=== PATIENT | female | born 1975 | race Caucasian/White ===

== ENCOUNTER → 2017-02-26 | Outpatient (CLI) | payer BC | LOC: MW.CHFP 14:12 | PROVIDERS: ATTEND Emergency Medicine | DX: M19.90 Unspecified osteoarthritis, unspecified site (principal) | CPT/HCPCS: 36415; 85025 ==

== ENCOUNTER → 2017-02-28 | Outpatient (CLI) | payer BC | END | disposition home or self-care (01) | LOC: MW.LAB 08:03 | PROVIDERS: ATTEND Plastic Surgery | DX: R53.83 Other fatigue (principal); N95.1 Menopausal and female climacteric states | CPT/HCPCS: 36415; 80061; 82306; 82670; 82947; 84403 ==

== ENCOUNTER 2017-08-20 05:32 | Day surgery (SDC) | payer BC ==
[2017-08-20] MEDS ORDERED: Ketorolac 30 MG/ML SDV IVPUSH ONE (05:47)
[2017-08-20] MEDS ORDERED: Sodium Chloride 0.9% 1,000 ML IV ONE (05:47)
[2017-08-20] MEDS ORDERED: Ondansetron 4 MG/2 ML SDV IVPUSH ONE (05:47)
--- NOTE | 2017-08-20 05:49 | EDM.PDOC ---
<Amish Vallecillo - Last Filed: 08/20/17 06:03> ED HPI GENERAL MEDICAL PROBLEM - General Chief Complaint: Gastrointestinal Problem Stated Complaint: ABDOMINAL PAIN Time Seen by Provider: 08/20/17 05:48 Source of Information: Reports: Patient - History of Present Illness INITIAL COMMENTS - FREE TEXT/NARRATIVE: HISTORY AND PHYSICAL: History of present illness: [Patient presents with right lower quadrant pain to begin with mild pain last night with dinner, she is been on the constipated side over the last couple of days she attributed symptoms to constipation however at 2 AM she is awoken by pain 8 out of 10 nonradiating right lower quadrant nothing has improved pain she continues to feel quite nauseous no vomiting denies fever chills sweats Patient has history of hysterectomy ] Review of systems: As per history of present illness and below otherwise all systems reviewed and negative. Past medical history: As per history of present illness and as reviewed below otherwise noncontributory. Surgical history: As per history of present illness and as reviewed below otherwise noncontributory. Social history: No reported history of drug or alcohol abuse. Family history: As per history of present illness and as reviewed below otherwise noncontributory. Physical exam: HEENT: Atraumatic, normocephalic, pupils reactive, negative for conjunctival pallor or scleral icterus, mucous membranes moist, throat clear, neck supple, nontender, trachea midline. Lungs: Clear to auscultation, breath sounds equal bilaterally, chest nontender. Heart: S1S2, regular, negative for clicks, rubs, or JVD. Abdomen: Soft, nondistended, exquisitely tender in the right lower quadrant with guarding and rebound. Negative for masses or hepatosplenomegaly. Negative for costovertebral tenderness. Pelvis: Stable nontender. Genitourinary: Deferred. Rectal: Deferred. Extremities: Atraumatic, negative for cords or calf pain. Neurovascular unremarkable. Neuro: Awake, alert, oriented. Cranial nerves II through XII unremarkable. Cerebellum unremarkable. Motor and sensory unremarkable throughout. Exam nonfocal. Diagnostics: [Lab as below CT abdomen pelvis with contrast No hCG secondary to hysterectomy ] Therapeutics: [1 L normal saline bolus Zofran 8 mg IV Toradol 30 mg IV Morphine 2 mg IV ] Impression: [Abdominal pain] Definitive disposition and diagnosis as appropriate pending reevaluation and review of above. 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 History: Reports: None Neurological History: Reports: None Psychiatric History: Reports: Anxiety Endocrine/Metabolic History: Reports: Hypothyroidism Hematologic History: Reports: None Immunologic History: Reports: SLE Dermatologic History: Reports: None - Infectious Disease History Infectious Disease History: Reports: None - Past Surgical History HEENT Surgical History: Reports: None GI Surgical History: Reports: Cholecystectomy, Other (See Below) Other GI Surgeries/Procedures: tummy tack Female Surgical History: Reports: Hysterectomy Musculoskeletal Surgical History: Reports: None Oncologic Surgical History: Reports: Lumpectomy Social & Family History - Family History Family Medical History: Noncontributory - Tobacco Use Smoking Status *Q: Never Smoker Second Hand Smoke Exposure: No - Caffeine Use Caffeine Use: Reports: None - Alcohol Use Days Per Week of Alcohol Use: 1 Number of Drinks Per Day: 2 Total Drinks Per Week: 2 - Recreational Drug Use Recreational Drug Use: No Course - Vital Signs Last Recorded V/S: Last Vital Signs Temp 36.6 C 08/20/17 05:33 Pulse 79 08/20/17 06:40 Resp 18 08/20/17 06:40 BP 110/67 08/20/17 06:40 Pulse Ox 98 08/20/17 06:40 - Orders/Labs/Meds Orders: Active Orders 24 hr Category Date Time Status Abdomen Pelvis w Cont [CT] Stat Exams 08/20/17 05:58 Taken HYDROmorphone [Dilaudid] Med 08/20/17 07:52 Once 1 mg IVPUSH ONETIME ONE cefOXitin [Mefoxin in Dextrose,Iso-Osm 2 GM/50 ML] 2 gm Med 08/20/17 07:41 Active Premix Bag 1 bag IV ONETIME Medication Orders Cefoxitin Sodium 2 gm/ Premix 50 mls @ 100 mls/hr IV ONETIME ONE Stop: 08/20/17 08:10 Last Admin: 08/20/17 07:47 Dose: 100 mls/hr Labs: Laboratory Tests 08/20/17 08/20/17 08/20/17 Range/Units 05:40 05:40 05:40 WBC 12.09 H (4.0-11.0) K/uL RBC 4.03 L (4.30-5.90) M/uL Hgb 13.1 (12.0-16.0) g/dL Hct 39.3 (36.0-46.0) % MCV 97.5 (80.0-98.0) fL MCH 32.5 H (27.0-32.0) pg MCHC 33.3 (31.0-37.0) g/dL RDW Std Deviation 46.1 (28.0-62.0) fl RDW Coeff of [place] 13 (11.0-15.0) % Plt Count 267 (150-400) K/uL MPV 10.40 (7.40-12.00) fL Neut % (Auto) 66.4 (48.0-80.0) % Lymph % (Auto) 21.2 (16.0-40.0) % [place] % (Auto) 10.7 (0.0-15.0) % Eos % (Auto) 1.5 (0.0-7.0) % Baso % (Auto) 0.2 (0.0-1.5) % Neut # (Auto) 8.0 H (1.4-5.7) K/uL Lymph # (Auto) 2.6 H (0.6-2.4) K/uL [place] # (Auto) 1.3 H (0.0-0.8) K/uL Eos # (Auto) 0.2 (0.0-0.7) K/uL Baso # (Auto) 0.0 (0.0-0.1) K/uL Nucleated RBC % 0.0 /100WBC Nucleated RBCs # 0 K/uL Sodium 141 (136-146) mmol/L Potassium 3.1 L (3.5-5.1) mmol/L Chloride 106 (98-110) mmol/L Carbon Dioxide 24 (21-31) mmol/L BUN 18 (6.0-23.0) mg/dL Creatinine 0.9 (0.6-1.5) mg/dL Est Cr Clr Drug Dosing 69.60 mL/min Estimated GFR (MDRD) > 60.0 ml/min Glucose 95 (60-110) mg/dL Calcium 9.4 (8.8-10.8) mg/dL Total Bilirubin 0.6 (0.1-1.5) mg/dL AST 20 (5-40) IU/L ALT 25 (8-54) IU/L Alkaline Phosphatase 57 (40-150) Troponin I < 0.10 (0.0-0.29) NG/ML Total Protein 7.7 (6.0-8.0) g/dL Albumin 4.4 (3.5-5.0) g/dL Globulin 3.3 (2.0-3.5) g/dL Albumin/Globulin Ratio 1.3 (1.3-2.8) Amylase 78 (10-90) U/L Lipase 38 (7-80) U/L Urine Color Urine Appearance Urine pH (5.0-8.0) Ur Specific [place] (1.001-1.035) Urine Protein (NEGATIVE) mg/dL Urine Glucose (UA) (NEGATIVE) mg/dL Urine Ketones (NEGATIVE) mg/dL Urine Occult Blood (NEGATIVE) Urine Nitrite (NEGATIVE) Urine Bilirubin (NEGATIVE) Urine Ictotest Urine Urobilinogen (<2.0) EU/dL Ur Leukocyte Esterase (NEGATIVE) Urine RBC (0-2/HPF) Urine WBC (0-5/HPF) Ur Epithelial Cells (NONE-FEW) Urine Bacteria (NEGATIVE) Urine Mucus (NONE-MOD) 08/20/17 Range/Units 06:20 WBC (4.0-11.0) K/uL RBC (4.30-5.90) M/uL Hgb (12.0-16.0) g/dL Hct (36.0-46.0) % MCV (80.0-98.0) fL MCH (27.0-32.0) pg MCHC (31.0-37.0) g/dL RDW Std Deviation (28.0-62.0) fl RDW Coeff of [place] (11.0-15.0) % Plt Count (150-400) K/uL MPV (7.40-12.00) fL Neut % (Auto) (48.0-80.0) % Lymph % (Auto) (16.0-40.0) % [place] % (Auto) (0.0-15.0) % Eos % (Auto) (0.0-7.0) % Baso % (Auto) (0.0-1.5) % Neut # (Auto) (1.4-5.7) K/uL Lymph # (Auto) (0.6-2.4) K/uL [place] # (Auto) (0.0-0.8) K/uL Eos # (Auto) (0.0-0.7) K/uL Baso # (Auto) (0.0-0.1) K/uL Nucleated RBC % /100WBC Nucleated RBCs # K/uL Sodium (136-146) mmol/L Potassium (3.5-5.1) mmol/L Chloride (98-110) mmol/L Carbon Dioxide (21-31) mmol/L BUN (6.0-23.0) mg/dL Creatinine (0.6-1.5) mg/dL Est Cr Clr Drug Dosing mL/min Estimated GFR (MDRD) ml/min Glucose (60-110) mg/dL Calcium (8.8-10.8) mg/dL Total Bilirubin (0.1-1.5) mg/dL AST (5-40) IU/L ALT (8-54) IU/L Alkaline Phosphatase (40-150) Troponin I (0.0-0.29) NG/ML Total Protein (6.0-8.0) g/dL Albumin (3.5-5.0) g/dL Globulin (2.0-3.5) g/dL Albumin/Globulin Ratio (1.3-2.8) Amylase (10-90) U/L Lipase (7-80) U/L Urine Color YELLOW Urine Appearance CLEAR Urine pH 5.5 (5.0-8.0) Ur Specific [place] >= 1.030 (1.001-1.035) Urine Protein NEGATIVE (NEGATIVE) mg/dL Urine Glucose (UA) NEGATIVE (NEGATIVE) mg/dL Urine Ketones TRACE H (NEGATIVE) mg/dL Urine Occult Blood TRACE-INTACT (NEGATIVE) Urine Nitrite NEGATIVE (NEGATIVE) Urine Bilirubin SMALL H (NEGATIVE) Urine Ictotest NEGATIVE Urine Urobilinogen 0.2 (<2.0) EU/dL Ur Leukocyte Esterase NEGATIVE (NEGATIVE) Urine RBC 0-3 (0-2/HPF) Urine WBC 0-2 (0-5/HPF) Ur Epithelial Cells FEW (NONE-FEW) Urine Bacteria FEW (NEGATIVE) Urine Mucus LIGHT (NONE-MOD) Meds: Medications Generic Name Dose Route Start Last Admin Trade Name Freq PRN Reason Stop Dose Admin Cefoxitin Sodium 2 gm/ Premix 50 mls @ 100 mls/hr 08/20/17 07:41 08/20/17 07: 47 IV 08/20/17 08:10 100 mls/hr ONETIME ONE Administration Discontinued Medications Generic Name Dose Route Start Last Admin Trade Name Freq PRN Reason Stop Dose Admin Sodium Chloride 1,000 mls @ 999 mls/hr 08/20/17 05:47 08/20/17 05:50 Normal Saline IV 08/20/17 06:47 999 mls/hr STAT ONE Administration Iopamidol 80 ml 08/20/17 06:39 08/20/17 06:39 Isovue Multipack-370 (76%) IVPUSH 08/20/17 06:40 80 ml ONETIME STA Administration Ketorolac Tromethamine 30 mg 08/20/17 05:47 08/20/17 05:55 Toradol IVPUSH 08/20/17 05:48 30 mg ONETIME ONE Administration Morphine Sulfate 2 mg 08/20/17 05:58 08/20/17 06:02 Morphine IV 08/20/17 05:59 2 mg ONETIME ONE Administration Ondansetron HCl 8 mg 08/20/17 05:47 08/20/17 05:51 Zofran IVPUSH 08/20/17 05:48 8 mg ONETIME ONE Administration Departure - Departure Disposition: Admitted As Inpatient 64 Clinical Impression: Acute appendicitis - Discharge Information Referrals: Kevon Vizcarra MD [Primary Care Provider] - Forms: ED Department Discharge - My Orders Last 24 Hours: My Active Orders 08/20/17 07:52 HYDROmorphone [Dilaudid] 1 mg IVPUSH ONETIME ONE - Assessment/Plan Last 24 Hours: My Active Orders 08/20/17 07:52 HYDROmorphone [Dilaudid] 1 mg IVPUSH ONETIME ONE <Ras Camacho - Last Filed: 08/20/17 07:55> ED HPI GENERAL MEDICAL PROBLEM - History of Present Illness INITIAL COMMENTS - FREE TEXT/NARRATIVE: Patient CT demonstrates acute appendicitis with a appendix measuring 14 mm there is no evidence of rupture general surgery will be consulted patient will be admitted lengthy discussion with patient and regarding admission surgical consultation included Dr. Vizcarra patient agrees ED ROS GENERAL - Review of Systems Review Of Systems: ROS reveals no pertinent complaints other than HPI. ED EXAM, GENERAL - Physical Exam Exam: See Below (See dictation) Departure - Departure Time of Disposition: 07:55 Condition: Good
[2017-08-20] MEDS ORDERED: Morphine 10 MG/ML Syringe IV ONE (05:58)
[2017-08-20 06:16] LABS: CHLORIDE,CL 106 mmol/L (98-110); SODIUM,NA 141 mmol/L (136-146)
[2017-08-20] MEDS ORDERED: Iopamidol 755 MG/ML 500 ML Multipack Bottle IVPUSH STA (06:39)
[2017-08-20] MEDS ORDERED: cefOXitin 2 GM in Premix Bag 1 BAG IV ONE (07:41)
[2017-08-20] MEDS ORDERED: HYDROmorphone 1 MG/ML Syringe IVPUSH ONE (07:52)
[2017-08-20] MEDS ORDERED: Lactated Ringers 1,000 ML IV SCH (08:15)
[2017-08-20] MEDS ORDERED: Morphine 10 MG/ML Syringe IVPUSH PRN ×2 (10:03→13:56)
[2017-08-20] MEDS ORDERED: Ondansetron 4 MG/2 ML SDV IVPUSH PRN ×2 (10:03→13:56)
[2017-08-20] MEDS ORDERED: fentaNYL 100 MCG/2 ML SDV ONE (10:13)
[2017-08-20] MEDS ORDERED: Lidocaine 2% 5 ML SDV ONE (10:13)
[2017-08-20] MEDS ORDERED: Propofol 200 MG/20 ML SDV ONE ×2 (10:13→10:35)
[2017-08-20] MEDS ORDERED: Ketorolac 30 MG/ML SDV ONE (10:14)
[2017-08-20] MEDS ORDERED: Midazolam 1 MG/ML 2 ML SDV ONE (10:14)
[2017-08-20] MEDS ORDERED: Neostigmine Methylsulfate 1 MG/ML 5 ML Syringe ONE (10:14)
[2017-08-20] MEDS ORDERED: Rocuronium 10 MG/ML 10 ML Syringe ONE (10:14)
[2017-08-20] MEDS ORDERED: Ondansetron 4 MG/2 ML SDV ONE ×2 (10:14→13:15)
[2017-08-20] MEDS ORDERED: Succinylcholine/Normal Saline 200 MG/10 ML Syringe ONE (10:14)
--- NOTE | 2017-08-20 11:24 | PCM.HP ---
H&P History of Present Illness - General Date of Service: 08/20/17 Admit Problem/Dx: Admission Diagnosis/Problem Admission Diagnosis/Problem Acute appendicitis Source of Information: Patient, Family History Limitations: Reports: No Limitations - History of Present Illness Onset of Symptoms: Reports: Today Symptom Onset Date: 08/20/17 Symptom Onset Time: 02:30 Duration of Symptoms: Reports: Getting Worse Location: Reports: Abdomen Quality: Reports: Pressure Severity: Moderate Improves with: Reports: Rest Worsens with: Reports: Movement Context: Reports: Sick Contact Associated Symptoms: Reports: Nausea/Vomiting Right Lower Abdomen Pain Score (Numeric/FACES): 8 - Related Data Allergies/Adverse Reactions: Allergies Allergy/AdvReac Type Severity Reaction Status Date / Time promethazine [From Phenergan] Allergy Other Verified 08/20/17 05:38 Home Medications: Home Meds Albuterol [Proventil HFA] 2 puff INH ASDIRECTED PRN 03/22/16 [History] FLUoxetine [PROzac] 20 mg PO DAILY 03/23/16 [History] Levothyroxine 25 mcg PO ACBREAKFAST 03/23/16 [History] Methyltrexate 15 mg PO WEEKLY PRN 03/23/16 [History] Past Medical History HEENT History: Reports: None Cardiovascular History: Reports: None Respiratory History: Reports: 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: Reports: None Neurological History: Reports: None Psychiatric History: Reports: Anxiety Endocrine/Metabolic History: Reports: Hypothyroidism Hematologic History: Reports: None Immunologic History: Reports: SLE Dermatologic History: Reports: None - Infectious Disease History Infectious Disease History: Reports: None - Past Surgical History HEENT Surgical History: Reports: None GI Surgical History: Reports: Cholecystectomy, Other (See Below) Other GI Surgeries/Procedures: tummy tack Female Surgical History: Reports: Hysterectomy Musculoskeletal Surgical History: Reports: None Oncologic Surgical History: Reports: Lumpectomy Social & Family History - Family History Family Medical History: Noncontributory - Tobacco Use Smoking Status *Q: Never Smoker Second Hand Smoke Exposure: No - Caffeine Use Caffeine Use: Reports: None - Alcohol Use Days Per Week of Alcohol Use: 1 Number of Drinks Per Day: 2 Total Drinks Per Week: 2 - Recreational Drug Use Recreational Drug Use: No H&P Review of Systems - Review of Systems: Review Of Systems: See Below General: Reports: Decreased Appetite. Denies: Fever, Chills, Weight Loss HEENT: Reports: No Symptoms Pulmonary: Denies: Shortness of Breath, Wheezing Cardiovascular: Denies: Chest Pain Gastrointestinal: Reports: Abdominal Pain, Anorexia, Nausea, Vomiting Genitourinary: Reports: No Symptoms Musculoskeletal: Reports: No Symptoms Skin: Reports: No Symptoms Psychiatric: Reports: Depression, Anxiety Neurological: Reports: No Symptoms Hematologic/Lymphatic: Reports: No Symptoms Immunologic: Reports: No Symptoms Exam - Exam Exam: See Below - Vital Signs Vital Signs: Last Vital Signs Temp 98.3 F 08/20/17 09:25 Pulse 88 08/20/17 09:25 Resp 16 08/20/17 09:25 BP 125/82 08/20/17 09:25 Pulse Ox 98 08/20/17 09:25 Weight: 145 lb - Exam General: Alert, Oriented, Cooperative, Moderate Distress HEENT: Conjunctiva Clear, EOMI. No: Scleral Icterus Neck: Supple, Trachea Midline Lungs: Clear to Auscultation, Normal Respiratory Effort Cardiovascular: Regular Rate, Regular Rhythm GI/Abdominal Exam: Normal Bowel Sounds, Soft, Guarding, Rebound, Tender (RLQ). No: Distended, Rigid (Female) Exam: Deferred Rectal (Female) Exam: Deferred Back Exam: Normal Inspection, Full Range of Motion Extremities: Normal Inspection, Normal Range of Motion Peripheral Pulses: 4+: Posterior Tibial (L), Posterior Tibial (R), Dorsalis Pedis (L), Dorsalis Pedis (R) Skin: Warm, Dry, Intact Neurological: Cranial Nerves Intact Neuro Extensive - Mental Status: Alert, Oriented x3 Psychiatric: Alert, Anxious - Patient Data Lab Results Last 24 hrs: Laboratory Results - last 24 hr 08/20/17 08/20/17 08/20/17 Range/Units 05:40 05:40 05:40 WBC 12.09 H (4.0-11.0) K/uL RBC 4.03 L (4.30-5.90) M/uL Hgb 13.1 (12.0-16.0) g/dL Hct 39.3 (36.0-46.0) % MCV 97.5 (80.0-98.0) fL MCH 32.5 H (27.0-32.0) pg MCHC 33.3 (31.0-37.0) g/dL RDW Std Deviation 46.1 (28.0-62.0) fl RDW Coeff of [place] 13 (11.0-15.0) % Plt Count 267 (150-400) K/uL MPV 10.40 (7.40-12.00) fL Neut % (Auto) 66.4 (48.0-80.0) % Lymph % (Auto) 21.2 (16.0-40.0) % [place] % (Auto) 10.7 (0.0-15.0) % Eos % (Auto) 1.5 (0.0-7.0) % Baso % (Auto) 0.2 (0.0-1.5) % Neut # (Auto) 8.0 H (1.4-5.7) K/uL Lymph # (Auto) 2.6 H (0.6-2.4) K/uL [place] # (Auto) 1.3 H (0.0-0.8) K/uL Eos # (Auto) 0.2 (0.0-0.7) K/uL Baso # (Auto) 0.0 (0.0-0.1) K/uL Nucleated RBC % 0.0 /100WBC Nucleated RBCs # 0 K/uL Sodium 141 (136-146) mmol/L Potassium 3.1 L (3.5-5.1) mmol/L Chloride 106 (98-110) mmol/L Carbon Dioxide 24 (21-31) mmol/L BUN 18 (6.0-23.0) mg/dL Creatinine 0.9 (0.6-1.5) mg/dL Est Cr Clr Drug Dosing 69.60 mL/min Estimated GFR (MDRD) > 60.0 ml/min Glucose 95 (60-110) mg/dL Calcium 9.4 (8.8-10.8) mg/dL Total Bilirubin 0.6 (0.1-1.5) mg/dL AST 20 (5-40) IU/L ALT 25 (8-54) IU/L Alkaline Phosphatase 57 (40-150) Troponin I < 0.10 (0.0-0.29) NG/ML Total Protein 7.7 (6.0-8.0) g/dL Albumin 4.4 (3.5-5.0) g/dL Globulin 3.3 (2.0-3.5) g/dL Albumin/Globulin Ratio 1.3 (1.3-2.8) Amylase 78 (10-90) U/L Lipase 38 (7-80) U/L Urine Color Urine Appearance Urine pH (5.0-8.0) Ur Specific [place] (1.001-1.035) Urine Protein (NEGATIVE) mg/dL Urine Glucose (UA) (NEGATIVE) mg/dL Urine Ketones (NEGATIVE) mg/dL Urine Occult Blood (NEGATIVE) Urine Nitrite (NEGATIVE) Urine Bilirubin (NEGATIVE) Urine Ictotest Urine Urobilinogen (<2.0) EU/dL Ur Leukocyte Esterase (NEGATIVE) Urine RBC (0-2/HPF) Urine WBC (0-5/HPF) Ur Epithelial Cells (NONE-FEW) Urine Bacteria (NEGATIVE) Urine Mucus (NONE-MOD) 08/20/17 Range/Units 06:20 WBC (4.0-11.0) K/uL RBC (4.30-5.90) M/uL Hgb (12.0-16.0) g/dL Hct (36.0-46.0) % MCV (80.0-98.0) fL MCH (27.0-32.0) pg MCHC (31.0-37.0) g/dL RDW Std Deviation (28.0-62.0) fl RDW Coeff of [place] (11.0-15.0) % Plt Count (150-400) K/uL MPV (7.40-12.00) fL Neut % (Auto) (48.0-80.0) % Lymph % (Auto) (16.0-40.0) % [place] % (Auto) (0.0-15.0) % Eos % (Auto) (0.0-7.0) % Baso % (Auto) (0.0-1.5) % Neut # (Auto) (1.4-5.7) K/uL Lymph # (Auto) (0.6-2.4) K/uL [place] # (Auto) (0.0-0.8) K/uL Eos # (Auto) (0.0-0.7) K/uL Baso # (Auto) (0.0-0.1) K/uL Nucleated RBC % /100WBC Nucleated RBCs # K/uL Sodium (136-146) mmol/L Potassium (3.5-5.1) mmol/L Chloride (98-110) mmol/L Carbon Dioxide (21-31) mmol/L BUN (6.0-23.0) mg/dL Creatinine (0.6-1.5) mg/dL Est Cr Clr Drug Dosing mL/min Estimated GFR (MDRD) ml/min Glucose (60-110) mg/dL Calcium (8.8-10.8) mg/dL Total Bilirubin (0.1-1.5) mg/dL AST (5-40) IU/L ALT (8-54) IU/L Alkaline Phosphatase (40-150) Troponin I (0.0-0.29) NG/ML Total Protein (6.0-8.0) g/dL Albumin (3.5-5.0) g/dL Globulin (2.0-3.5) g/dL Albumin/Globulin Ratio (1.3-2.8) Amylase (10-90) U/L Lipase (7-80) U/L Urine Color YELLOW Urine Appearance CLEAR Urine pH 5.5 (5.0-8.0) Ur Specific [place] >= 1.030 (1.001-1.035) Urine Protein NEGATIVE (NEGATIVE) mg/dL Urine Glucose (UA) NEGATIVE (NEGATIVE) mg/dL Urine Ketones TRACE H (NEGATIVE) mg/dL Urine Occult Blood TRACE-INTACT (NEGATIVE) Urine Nitrite NEGATIVE (NEGATIVE) Urine Bilirubin SMALL H (NEGATIVE) Urine Ictotest NEGATIVE Urine Urobilinogen 0.2 (<2.0) EU/dL Ur Leukocyte Esterase NEGATIVE (NEGATIVE) Urine RBC 0-3 (0-2/HPF) Urine WBC 0-2 (0-5/HPF) Ur Epithelial Cells FEW (NONE-FEW) Urine Bacteria FEW (NEGATIVE) Urine Mucus LIGHT (NONE-MOD) Result Diagrams: 08/20/17 05:40 08/20/17 05:40 *Q Meaningful Use (ADM) - VTE *Q VTE Criteria *Q: - Stroke *Q Stroke Criteria *Q: - AMI *Q AMI Criteria *Q: - Problem List (1) Acute appendicitis SNOMED Code(s): 84526356 ICD Code: K35.80 - UNSPECIFIED ACUTE APPENDICITIS Status: Acute Current Visit: Yes Problem List Initiated/Reviewed/Updated: Yes Orders Last 24hrs: Active Orders 24 hr Category Date Time Status Admission Status [Patient Status] [ADT] Stat ADT 08/20/17 08:29 Active Antiembolic Devices [RC] PER UNIT ROUTINE Care 08/20/17 11:18 Ordered Méndez Catheter Insertion [Insert Urinary Catheter] [OM. Care 08/20/17 11:30 Ordered PC] Q24H Oxygen Therapy [RC] PRN Care 08/20/17 11:17 Ordered Pulse Oximetry [RC] INTERMITTENT Care 08/20/17 11:17 Ordered Skin Preparation [RC] .PREOP Care 08/20/17 11:18 Ordered Urinary Catheter Assessment [RC] ASDIRECTED Care 08/20/17 11:18 Ordered Urinary Catheter Assessment [RC] ASDIRECTED Care 08/20/17 11:18 Ordered Vital Signs [RC] PER UNIT ROUTINE Care 08/20/17 11:17 Ordered Nothing Per Oral Diet [DIET] Diet 08/20/17 Breakfast Ordered Abdomen Pelvis w Cont [CT] Stat Exams 08/20/17 05:58 Taken Lactated Ringers [Ringers, Lactated] 1,000 ml Med 08/20/17 08:15 Active IV ASDIRECTED Morphine Med 08/20/17 10:03 Active 5 mg IVPUSH Q1H PRN Ondansetron [Zofran] Med 08/20/17 10:03 Active 4 mg IVPUSH Q4H PRN Antiembolic Hose [OM.PC] PER UNIT ROUTINE Oth 08/20/17 06:00 Ordered Antiembolic Hose [OM.PC] PER UNIT ROUTINE Oth 08/21/17 06:00 Ordered Sequential Compression Device [OM.PC] Routine Oth 08/20/17 11:18 Ordered Resuscitation Status Routine Resus Stat 08/20/17 11:17 Ordered Medication Orders Lactated Ringer's (Ringers, Lactated) 1,000 mls @ 125 mls/hr IV ASDIRECTED CLAUDETTE Last Admin: 08/20/17 08:17 Dose: 125 mls/hr Morphine Sulfate (Morphine) 5 mg IVPUSH Q1H PRN PRN Reason: Pain Last Admin: 08/20/17 10:37 Dose: 2 mg Ondansetron HCl (Zofran) 4 mg IVPUSH Q4H PRN PRN Reason: Nausea Last Admin: 08/20/17 10:37 Dose: 4 mg Assessment/Plan Comment:: Acute appendicitis. Laparoscopic appendectomy, possible open appendectomy. Both operative procedures, along with the risks, including, but not limited to, bleeding, infection, pneumonia, deep venous thrombosis, pulmonary emboli, myocardial infarction, and adjacent organ injury have been reviewed with the patient who voices understanding, offers no questions and agrees to proceed.
--- NOTE | 2017-08-20 11:43 | PCM.PREANE ---
Preanesthetic Assessment - Procedure Proposed Procedure: lap appendectomy - Anesthesia/Transfusion/Family Hx Anesthesia History: Prior Anesthesia Without Reaction (but does not tolerate OR entrance....sedation requested) Family History of Anesthesia Reaction: No Intubation History: Unknown - Review of Systems General: Other (pain) Pulmonary: No Symptoms Cardiovascular: No Symptoms Gastrointestinal: Abdominal Pain (due to RLQ) Neurological: No Symptoms Other: Reports: None - Physical Assessment NPO Status Date: 08/20/17 O2 Sat by Pulse Oximetry: 98 Respiratory Rate: 16 Vital Signs: Last Vital Signs Temp 98.3 F 08/20/17 09:25 Pulse 88 08/20/17 09:25 Resp 16 08/20/17 09:25 BP 125/82 08/20/17 09:25 Pulse Ox 98 08/20/17 09:25 Height: 5 ft 4 in Weight: 145 lb ASA Class: 2E Mental Status: Alert & Oriented x3 Airway Class: Mallampati = 1 Dentition: Reports: Normal Dentition Thyro-Mental Finger Breadths: 3 Mouth Opening Finger Breadths: 3 ROM/Head Extension: Full Lungs: Clear to Auscultation, Normal Respiratory Effort Cardiovascular: Regular Rate, Regular Rhythm, No Murmurs Other: s/p abdominoplasty 4 months ago - Lab Values: Laboratory Last Values WBC 12.09 K/uL (4.0-11.0) H 08/20/17 05:40 RBC 4.03 M/uL (4.30-5.90) L 08/20/17 05:40 Hgb 13.1 g/dL (12.0-16.0) 08/20/17 05:40 Hct 39.3 % (36.0-46.0) 08/20/17 05:40 MCV 97.5 fL (80.0-98.0) 08/20/17 05:40 MCH 32.5 pg (27.0-32.0) H 08/20/17 05:40 MCHC 33.3 g/dL (31.0-37.0) 08/20/17 05:40 RDW Std Deviation 46.1 fl (28.0-62.0) 08/20/17 05:40 RDW Coeff of [place] 13 % (11.0-15.0) 08/20/17 05:40 Plt Count 267 K/uL (150-400) 08/20/17 05:40 MPV 10.40 fL (7.40-12.00) 08/20/17 05:40 Neut % (Auto) 66.4 % (48.0-80.0) 08/20/17 05:40 Lymph % (Auto) 21.2 % (16.0-40.0) 08/20/17 05:40 Stark % (Auto) 10.7 % (0.0-15.0) 08/20/17 05:40 Eos % (Auto) 1.5 % (0.0-7.0) 08/20/17 05:40 Baso % (Auto) 0.2 % (0.0-1.5) 08/20/17 05:40 Neut # (Auto) 8.0 K/uL (1.4-5.7) H 08/20/17 05:40 Lymph # (Auto) 2.6 K/uL (0.6-2.4) H 08/20/17 05:40 Stark # (Auto) 1.3 K/uL (0.0-0.8) H 08/20/17 05:40 Eos # (Auto) 0.2 K/uL (0.0-0.7) 08/20/17 05:40 Baso # (Auto) 0.0 K/uL (0.0-0.1) 08/20/17 05:40 Nucleated RBC % 0.0 /100WBC 08/20/17 05:40 Nucleated RBCs # 0 K/uL 08/20/17 05:40 Sodium 141 mmol/L (136-146) 08/20/17 05:40 Potassium 3.1 mmol/L (3.5-5.1) L 08/20/17 05:40 Chloride 106 mmol/L (98-110) 08/20/17 05:40 Carbon Dioxide 24 mmol/L (21-31) 08/20/17 05:40 BUN 18 mg/dL (6.0-23.0) 08/20/17 05:40 Creatinine 0.9 mg/dL (0.6-1.5) 08/20/17 05:40 Est Cr Clr Drug Dosing 69.60 mL/min 08/20/17 05:40 Estimated GFR (MDRD) > 60.0 ml/min 08/20/17 05:40 Glucose 95 mg/dL (60-110) 08/20/17 05:40 Calcium 9.4 mg/dL (8.8-10.8) 08/20/17 05:40 Total Bilirubin 0.6 mg/dL (0.1-1.5) 08/20/17 05:40 AST 20 IU/L (5-40) 08/20/17 05:40 ALT 25 IU/L (8-54) 08/20/17 05:40 Alkaline Phosphatase 57 (40-150) 08/20/17 05:40 Troponin I < 0.10 NG/ML (0.0-0.29) 08/20/17 05:40 Total Protein 7.7 g/dL (6.0-8.0) 08/20/17 05:40 Albumin 4.4 g/dL (3.5-5.0) 08/20/17 05:40 Globulin 3.3 g/dL (2.0-3.5) 08/20/17 05:40 Albumin/Globulin Ratio 1.3 (1.3-2.8) 08/20/17 05:40 Amylase 78 U/L (10-90) 08/20/17 05:40 Lipase 38 U/L (7-80) 08/20/17 05:40 Urine Color YELLOW 08/20/17 06:20 Urine Appearance CLEAR 08/20/17 06:20 Urine pH 5.5 (5.0-8.0) 08/20/17 06:20 Ur Specific [place] >= 1.030 (1.001-1.035) 08/20/17 06:20 Urine Protein NEGATIVE mg/dL (NEGATIVE) 08/20/17 06:20 Urine Glucose (UA) NEGATIVE mg/dL (NEGATIVE) 08/20/17 06:20 Urine Ketones TRACE mg/dL (NEGATIVE) H 08/20/17 06:20 Urine Occult Blood TRACE-INTACT (NEGATIVE) 08/20/17 06:20 Urine Nitrite NEGATIVE (NEGATIVE) 08/20/17 06:20 Urine Bilirubin SMALL (NEGATIVE) H 08/20/17 06:20 Urine Ictotest NEGATIVE 08/20/17 06:20 Urine Urobilinogen 0.2 EU/dL (<2.0) 08/20/17 06:20 Ur Leukocyte Esterase NEGATIVE (NEGATIVE) 08/20/17 06:20 Urine RBC 0-3 (0-2/HPF) 08/20/17 06:20 Urine WBC 0-2 (0-5/HPF) 08/20/17 06:20 Ur Epithelial Cells FEW (NONE-FEW) 08/20/17 06:20 Urine Bacteria FEW (NEGATIVE) 08/20/17 06:20 Urine Mucus LIGHT (NONE-MOD) 08/20/17 06:20 - Allergies Allergies/Adverse Reactions: Allergies Allergy/AdvReac Type Severity Reaction Status Date / Time promethazine [From Phenergan] Allergy Other Verified 08/20/17 05:38 - Blood Blood Available: No Product(s) Available: None - Anesthesia Plan Pre-Op Medication Ordered: None - Acknowledgements Anesthesia Type Planned: General Anesthesia (will sedate on way to OR; discussed with CONRADO) Pt an Appropriate Candidate for the Planned Anesthesia: Yes Alternatives and Risks of Anesthesia Discussed w Pt/Guardian: Yes Pt/Guardian Understands and Agrees with Anesthesia Plan: Yes PreAnesthesia Questionnaire HEENT History: Reports: None Cardiovascular History: Reports: None Respiratory History: Reports: Asthma WORKS MANAGER History: Reports: Musculoskeletal History: Reports: None Neurological History: Reports: None Psychiatric History: Reports: Anxiety Endocrine/Metabolic History: Reports: Hypothyroidism Hematologic History: Reports: None Immunologic History: Reports: SLE Dermatologic History: Reports: None - Infectious Disease History Infectious Disease History: Reports: None - Past Surgical History HEENT Surgical History: Reports: None GI Surgical History: Reports: Cholecystectomy, Other (See Below) Other GI Surgeries/Procedures: tummy tack Female Surgical History: Reports: Hysterectomy Musculoskeletal Surgical History: Reports: None Oncologic Surgical History: Reports: Lumpectomy - SUBSTANCE USE Smoking Status *Q: Never Smoker Second Hand Smoke Exposure: No Days Per Week of Alcohol Use: 1 Number of Drinks Per Day: 2 Total Drinks Per Week: 2 Recreational Drug Use History: No - HOME MEDS Home Medications: Home Meds Albuterol [Proventil HFA] 2 puff INH ASDIRECTED PRN 03/22/16 [History] FLUoxetine [PROzac] 20 mg PO DAILY 03/23/16 [History] Levothyroxine 25 mcg PO ACBREAKFAST 03/23/16 [History] Methyltrexate 15 mg PO WEEKLY PRN 03/23/16 [History] - CURRENT (IN HOUSE) MEDS Current Meds: Current Medications Lactated Ringer's (Ringers, Lactated) 1,000 mls @ 125 mls/hr IV ASDIRECTED [facility] Last Admin: 08/20/17 08:17 Dose: 125 mls/hr Morphine Sulfate (Morphine) 5 mg IVPUSH Q1H PRN PRN Reason: Pain Last Admin: 08/20/17 10:37 Dose: 2 mg Ondansetron HCl (Zofran) 4 mg IVPUSH Q4H PRN PRN Reason: Nausea Last Admin: 08/20/17 10:37 Dose: 4 mg Discontinued Medications Fentanyl (Sublimaze) Confirm Administered Dose 300 mcg .ROUTE .STK-MED ONE Stop: 08/20/17 10:14 Glycopyrrolate () Confirm Administered Dose 1 mg .ROUTE .STK-MED ONE Stop: 08/20/17 10:15 Hydromorphone HCl (Dilaudid) 1 mg IVPUSH ONETIME ONE Stop: 08/20/17 07:53 Last Admin: 08/20/17 07:55 Dose: 1 mg Sodium Chloride (Normal Saline) 1,000 mls @ 999 mls/hr IV STAT ONE Stop: 08/20/17 06:47 Last Admin: 08/20/17 05:50 Dose: 999 mls/hr Cefoxitin Sodium 2 gm/ Premix 50 mls @ 100 mls/hr IV ONETIME ONE Stop: 08/20/17 08:10 Last Admin: 08/20/17 07:47 Dose: 100 mls/hr Cefoxitin Sodium (Mefoxin In Dextrose,Iso-Osm 1 Gm/50 Ml) Confirm Administered Dose 50 mls @ as directed .ROUTE .STK-MED ONE Stop: 08/20/17 11:10 Iopamidol (Isovue Multipack-370 (76%)) 80 ml IVPUSH ONETIME STA Stop: 08/20/17 06:40 Last Admin: 08/20/17 06:39 Dose: 80 ml Ketorolac Tromethamine (Toradol) 30 mg IVPUSH ONETIME ONE Stop: 08/20/17 05:48 Last Admin: 08/20/17 05:55 Dose: 30 mg Ketorolac Tromethamine (Toradol) Confirm Administered Dose 30 mg .ROUTE .STK- MED ONE Stop: 08/20/17 10:15 Lidocaine (Xylocaine-Mpf 2%) Confirm Administered Dose 10 ml .ROUTE .STK-MED ONE Stop: 08/20/17 10:14 Midazolam HCl (Versed 1 Mg/Ml) Confirm Administered Dose 2 mg .ROUTE .STK-MED ONE Stop: 08/20/17 10:15 Morphine Sulfate (Morphine) 2 mg IV ONETIME ONE Stop: 08/20/17 05:59 Last Admin: 08/20/17 06:02 Dose: 2 mg Neostigmine Methylsulfate (Neostigmine) Confirm Administered Dose 5 mg .ROUTE .STK-MED ONE Stop: 08/20/17 10:15 Ondansetron HCl (Zofran) 8 mg IVPUSH ONETIME ONE Stop: 08/20/17 05:48 Last Admin: 08/20/17 05:51 Dose: 8 mg Ondansetron HCl (Zofran) Confirm Administered Dose 4 mg .ROUTE .STK-MED ONE Stop: 08/20/17 10:15 Propofol (Diprivan 20 Ml) Confirm Administered Dose 400 mg .ROUTE .STK-MED ONE Stop: 08/20/17 10:14 Propofol (Diprivan 20 Ml) Confirm Administered Dose 200 mg .ROUTE .STK-MED ONE Stop: 08/20/17 10:36 Rocuronium [place] (Zemuron) Confirm Administered Dose 100 mg .ROUTE .STK-MED ONE Stop: 08/20/17 10:15 Succinylcholine Chloride (Succinylcholine In Ns Pf) Confirm Administered Dose 200 mg .ROUTE .STK-MED ONE Stop: 08/20/17 10:15
[2017-08-20] MEDS ORDERED: HYDROmorphone 2 MG/ML Syringe ONE (12:54)
[2017-08-20] MEDS ORDERED: fentaNYL 100 MCG/2 ML SDV IVPUSH PRN (13:14)
[2017-08-20] MEDS ORDERED: HYDROmorphone 2 MG/ML Syringe IVPUSH ONE (13:14)
--- NOTE | 2017-08-20 13:28 | CT ---
EXAM DATE: 08/20/17 PATIENT'S AGE: 41 Patient: ANNI HENAO Facility: [place], [place] Site . Site : 1975 Study: CT Abdomen/Pelvis [id number]/18/2017 7:08:59 AM Ordering Physician: Doctor Willoughby Final Report: INDICATION: ACUTE RLQ PAIN HISTORY: Right lower quadrant abdominal pain. COMPARISON: CT of the abdomen and pelvis 05/18/2012. TECHNIQUE: CT of the abdomen and pelvis with intravenous contrast. 80 cc of Isovue-370 IV. Coronal/sagittal reconstruction images. FINDINGS: Lung bases: There is no pleural or pericardial effusion. The heart size is normal. There is no acute airspace disease. There is no basilar pneumothorax. Abdomen/pelvis: Cholecystectomy. Mild dilation of biliary radicals is likely secondary to reservoir effect. No solid hepatic mass. Spleen size is normal. No adrenal mass. No hydronephrosis. No perinephric edema. No pancreatic mass or pancreatic duct dilation. No glandular atrophy. No adnexal mass. Small amount of free fluid in the pelvis. There is no small bowel or colonic obstruction. There is fat stranding present about the appendix, which is dilated. There is mucosal hyper enhancement with multiple appendicoliths. Acute appendicitis is suspected. Surgical consultation is advised. The appendix measures up to 14 mm in luminal dimension. No drainable fluid collection. No extraluminal gas. No abdominal aortic aneurysm. Visceral artery branches are patent. There is no abdominal or pelvic lymphadenopathy by size criteria. The bone windows demonstrate no suspicious lytic or blastic bone lesions. The alignment is preserved. IMPRESSION: 1. Acute appendicitis. Dilated appendix in the right lower quadrant, with adjacent fat stranding and intraluminal appendicoliths. 2. No drainable fluid collection or extraluminal gas. 3. Surgical consultation is advised. 4. Report called to Dr. Camacho, emergency department, 08/20/2017, 0731 hours. Dictated by Kevon Sykes MD @ 08/20/2017 7:31:34 AM Dictated by: Kevon Sykes MD @ 08/20/2017 07:31:44 (Electronic Signature) Report Signed by Proxy. [facility] HOSPITALMaribel
[2017-08-20] MEDS ORDERED: Metoclopramide 10 MG/2 ML SDV IV SCH (14:00)
--- NOTE | 2017-08-20 14:02 | PCM.OPNOTE ---
- General Post-Op/Procedure Note Date of Surgery/Procedure: 08/20/17 Operative Procedure(s): Laparoscopic appendectomy Pre Op Diagnosis: Acute abdomen Post-Op Diagnosis: Acute gangrenous appendicitis without rupture Anesthesia Technique: General ET Tube (ASA IIE) Primary Surgeon: Leo Melo Fluid Replacement, Intraop: 1,500 Output, Urine Amount: 100 EBL in mLs: 5 Condition: Fair Free Text/Narrative:: Dictation [id number] CPT CODE 94595
[2017-08-20] MEDS ORDERED: Bupivacaine 0.5% 30 ML SDV ONE (14:16)
--- NOTE | 2017-08-20 15:19 | PCM48HPAN ---
Post Anesthesia Note - EVALUATION WITHIN 48HRS OF ANESTHETIC Vital Signs in Normal Range: Yes Patient Participated in Evaluation: Yes Respiratory Function Stable: Yes Airway Patent: Yes Cardiovascular Function Stable: Yes Hydration Status Stable: Yes Pain Control Satisfactory: Yes Nausea and Vomiting Control Satisfactory: Yes Mental Status Recovered: Yes
--- NOTE | 2017-08-20 15:20 | PCM.POSTAN ---
POST ANESTHESIA ASSESSMENT - MENTAL STATUS Mental Status: Alert, Oriented - RESPIRATORY Respiratory Status: Respiratory Rate WNL, Airway Patent, O2 Saturation Stable - CARDIOVASCULAR CV Status: Pulse Rate WNL, Blood Pressure Stable - GASTROINTESTINAL GI Status: No Symptoms - POST OP HYDRATION Hydration Status: Adequate & Stable
[2017-08-20] MEDS: Metoclopramide 10 MG/2 ML SDV IV SCH ×2 (15:54→22:15)
[2017-08-20] MEDS: Acetaminophen/HYDROcodone 325-5 MG Tab PO PRN ×2 (15:59→20:06)
[2017-08-20] MEDS: Lactated Ringers 1,000 ML IV SCH (17:58)
--- NOTE | 2017-08-20 19:59 | OR ---
SURGEON: Leo Melo M.D. DATE OF PROCEDURE: 08/20/2017 OPERATION PERFORMED: Laparoscopic appendectomy. ANESTHESIA: General endotracheal. ASA CLASSIFICATION: IIE. PREOPERATIVE DIAGNOSIS: Acute abdomen. POSTOPERATIVE DIAGNOSIS: Acute gangrenous nonruptured appendicitis. INTRAOPERATIVE FLUID REPLACEMENT: 1500 mL of crystalloid. ESTIMATED BLOOD LOSS: 5 mL. DESCRIPTION OF PROCEDURE: The patient was taken to the operating room and placed on the operating table in supine position. Time-out was called for appropriate identification of the patient and procedure. Thigh-high TEDs and sequential compression boots were placed. Following satisfactory attainment of general endotracheal anesthesia, a Méndez catheter was placed in the patient's urinary bladder. The abdomen was prepped with DuraPrep solution. Sterile drapes were applied. The skin just above the umbilicus was infiltrated with 0.5% Marcaine solution. The skin incision was made and deepened into the subcutaneous tissue. Hemostasis was obtained with the use of electrocautery. The Veress needle was introduced into the peritoneal cavity. Saline drop test was positive. Carbon dioxide pneumoperitoneum was established with the relief set at 13 cm of water, subsequently increased to 15 cm. Once satisfactory pneumoperitoneum was obtained, 5 mm camera and port were placed through the supraumbilical incision. The patient was now positioned with her head down and rolled to the left. Under camera vision, 12 mm subxiphoid, 12 mm suprapubic, and 5 mm left lower quadrant ports were placed. The appendix was acutely inflamed and gangrenous in appearance. There was no cloudy fluid. There was no evidence of rupture. The mesoappendix was taken down with the Harmonic scalpel. The base of the appendix was ligated with an Endo-USAMA blue load stapler. The appendix was placed in an Endopouch. The right lower quadrant was irrigated with sterile saline solution and all fluid aspirated. There was no bleeding noted, no cloudy fluid. With that accomplished, the patient was returned to a neutral position. The 12 mm suprapubic port and Endopouch containing appendix were removed. Under camera vision, the left lower quadrant port was removed and finally the supraumbilical port. The wounds were inspected for hemostasis. No significant bleeding was noted. All incisions were closed in 2 layers approximating the subcutaneous tissue with 3-0 Polysorb and the skin with subcuticular 4-0 Monocryl. All incisions were Steri-Stripped and dressed with sterile Tegaderm pads. Sponge, needle, and instrument counts were all correct. The patient tolerated the procedure well. Méndez catheter was removed prior to emergence from anesthesia. Following emergence from anesthesia and extubation, the patient was taken to recovery room in stable condition. SHREE SHIRLEY /[id number]
[2017-08-21] MEDS: Lactated Ringers 1,000 ML IV SCH (02:30)
[2017-08-21] MEDS: Acetaminophen/HYDROcodone 325-5 MG Tab PO PRN ×3 (02:40→12:17)
[2017-08-21] MEDS: Metoclopramide 10 MG/2 ML SDV IV SCH ×2 (04:12→09:37)
[2017-08-21 12:26] VITALS: BP 95/59
== END 2017-08-21 13:25 | disposition home or self-care (01) ==
LOC: MW.ED 05:32 → MW.SDS 08:30 → MW.OB 09:27 → MW.SDS 08-21 13:25
PROVIDERS: ATTEND Surgery
DX: K35.80 Unspecified acute appendicitis (principal); F41.9 Anxiety disorder, unspecified; J45.909 Unspecified asthma, uncomplicated; E03.9 Hypothyroidism, unspecified; Z88.8 Allergy status to other drugs, medicaments and biological substances; Z79.899 Other long term (current) drug therapy; Z90.710 Acquired absence of both cervix and uterus; Z90.49 Acquired absence of other specified parts of digestive tract; Z98.890 Other specified postprocedural states
CPT/HCPCS: 44970; 74177; 80053; 81001; 82150; 83690; 84484; 85025; 96361; 96365; 96375; 99285; A9270; J0694; J1170; J1885; J2250; J2270; J2405; J2765; J3010; J7040; J7120; Q9967; 00840; 88304; 99283; J2704

== ENCOUNTER 2017-08-25 12:07 | Emergency (ER) | payer BC ==
[2017-08-25] MEDS ORDERED: Acetaminophen 325 MG Tab PO ONE (12:12)
[2017-08-25] MEDS ORDERED: Sodium Chloride 0.9% 1,000 ML IV ONE (12:12)
[2017-08-25] MEDS ORDERED: Albuterol/Ipratropium 3.0-0.5 MG/3 ML Neb Soln NEB ONE ×2 (12:12→14:04)
[2017-08-25] MEDS ORDERED: methylPREDNISolone Sodium Succinate 125 MG/2 ML SDV IVPUSH ONE (12:12)
[2017-08-25] MEDS ORDERED: Albuterol/Ipratropium 3.0-0.5 MG/3 ML Neb Soln ONE (12:13)
--- NOTE | 2017-08-25 12:14 | EDM.PDOC ---
ED HPI GENERAL MEDICAL PROBLEM - General Chief Complaint: Respiratory Problem Stated Complaint: SOB Time Seen by Provider: 08/25/17 12:09 Source of Information: Reports: Patient History Limitations: Reports: No Limitations - History of Present Illness INITIAL COMMENTS - FREE TEXT/NARRATIVE: HISTORY AND PHYSICAL: History of present illness: Patient is a 41-year-old female who presents to the emergency room today with complaints of cough, fever, shortness of breath. Had an upper scopic appendectomy on 08/21/17 and states that her incision/healing is going well. In the hospital she has noticed a cough, fever of 101 (recorded on Friday) and shortness of breath with exertion. Today she went to a walk-in clinic and had reported oxygen sats of 88%. They referred her to the emergency room for further evaluation. Denies any chest pain, abdominal pain, nausea, vomiting, diarrhea. Reports her bowel movements have been regular. Denies any dysuria. Able to eat and drink appropriately, no current complaints. Review of systems: As per history of present illness and below otherwise all systems reviewed and negative. Past medical history: As per history of present illness and as reviewed below otherwise noncontributory. Surgical history: As per history of present illness and as reviewed below otherwise noncontributory. Social history: No reported history of drug or alcohol abuse. Family history: As per history of present illness and as reviewed below otherwise noncontributory. Physical exam: Gen.: Nontoxic appearing 41-year-old female. Able to speak in full sentences without shortness of breath. Alert and oriented. HEENT: Atraumatic, normocephalic, pupils reactive, negative for conjunctival pallor or scleral icterus, mucous membranes moist, throat clear, neck supple, nontender, trachea midline. Lungs: Expiratory wheezing heard to posterior upper lobes bilaterally, breath sounds equal bilaterally, chest nontender. Dry nonproductive cough noted. Heart: S1S2, regular, negative for clicks, rubs, or JVD. Abdomen: Soft, nondistended, nontender. Surgical stab sites appear without infection, no redness or drainage. Negative for masses or hepatosplenomegaly. Negative for costovertebral tenderness. Pelvis: Stable nontender. Genitourinary: Deferred. Rectal: Deferred. Extremities: Atraumatic, negative for cords or calf pain. Neurovascular unremarkable. Neuro: Awake, alert, oriented. Cranial nerves II through XII unremarkable. Cerebellum unremarkable. Motor and sensory unremarkable throughout. Exam nonfocal. Patient reports that she feels much better after initial DuoNeb. Her lung sounds have improved as well. Vitals are 126/83, oxygen sats 100% on room air, pulse is 90. Lab work and x-ray does not indicate any sign of pneumonia. We did discuss discharge plan, would like her to use her incentive spirometer more frequently at home. She does have a nebulizer machine at home, I will give her DuoNeb to take at home. Instructed her to use Tylenol as needed for pain and fever control. If coughing becomes worse or new symptoms arise please return to the emergency room Diagnostics: CBC, CMP, blood cultures 2, 2 view chest x-ray Therapeutics: DuoNeb, Solu-Medrol, IV fluids Impression: 1. Atelectasis Plan: 1. Please take the duo nebs as prescribed. Continue with her incentive spirometer. 2. Follow-up with your primary care provider in the next 1-2 days. Return to the ED as needed and as discussed. Definitive disposition and diagnosis as appropriate pending reevaluation and review of above. Onset Date: 08/21/17 Duration: Day(s): Location: Reports: Chest Right Lower Abdomen Pain Score (Numeric/FACES): 4 - Related Data Allergies Allergy/AdvReac Type Severity Reaction Status Date / Time promethazine [From Phenergan] Allergy Other Verified 08/25/17 12:15 Home Meds: Home Meds Albuterol [Proventil HFA] 2 puff INH ASDIRECTED PRN 03/22/16 [History] FLUoxetine [PROzac] 20 mg PO DAILY 03/23/16 [History] Levothyroxine 25 mcg PO ACBREAKFAST 03/23/16 [History] Methyltrexate 15 mg PO WEEKLY PRN 03/23/16 [History] ClonazePAM [KlonoPIN] 2 mg PO BEDTIME 08/25/17 [History] QUEtiapine Fumarate [Seroquel] 50 mg PO DAILY 08/25/17 [History] Past Medical History HEENT History: Reports: None Cardiovascular History: Reports: None Respiratory History: Reports: Asthma POST ACUTE CARE REGISTERED NURSE History: Reports: Musculoskeletal History: Reports: None Neurological History: Reports: None Psychiatric History: Reports: Anxiety Endocrine/Metabolic History: Reports: Hypothyroidism Hematologic History: Reports: None Immunologic History: Reports: SLE Dermatologic History: Reports: None - Infectious Disease History Infectious Disease History: Reports: None - Past Surgical History HEENT Surgical History: Reports: None GI Surgical History: Reports: Cholecystectomy, Other (See Below) Other GI Surgeries/Procedures: tummy tack Female Surgical History: Reports: Hysterectomy Musculoskeletal Surgical History: Reports: None Oncologic Surgical History: Reports: Lumpectomy Social & Family History - Family History Family Medical History: Noncontributory - Tobacco Use Smoking Status *Q: Never Smoker Second Hand Smoke Exposure: No - Caffeine Use Caffeine Use: Reports: None - Alcohol Use Days Per Week of Alcohol Use: 1 Number of Drinks Per Day: 2 Total Drinks Per Week: 2 - Recreational Drug Use Recreational Drug Use: No ED ROS GENERAL - Review of Systems Review Of Systems: ROS reveals no pertinent complaints other than HPI. ED EXAM, GENERAL - Physical Exam Exam: See Below (See dictation) Course - Vital Signs Last Recorded V/S: Last Vital Signs Temp Pulse 140 H 08/25/17 12:10 Resp 18 08/25/17 12:10 BP 143/90 H 08/25/17 12:10 Pulse Ox 100 08/25/17 12:10 - Orders/Labs/Meds Orders: Active Orders 24 hr Category Date Time Status EKG Documentation Completion [RC] STAT Care 08/25/17 12:12 Active RT Aerosol Therapy [RC] ASDIRECTED Care 08/25/17 12:12 Active RT Aerosol Therapy [RC] ASDIRECTED Care 08/25/17 14:05 Ordered CULTURE BLOOD [BC] Stat Lab 08/25/17 12:30 Received CULTURE BLOOD [BC] Stat Lab 08/25/17 12:40 Received Albuterol/Ipratropium [DuoNeb 3.0-0.5 MG/3 ML] Med 08/25/17 14:04 Once 3 ml NEB ONETIME ONE Labs: Laboratory Tests 08/25/17 08/25/17 08/25/17 Range/Units 12:19 12:19 12:40 WBC 9.23 (4.0-11.0) K/uL RBC 4.21 L (4.30-5.90) M/uL Hgb 13.8 (12.0-16.0) g/dL Hct 40.4 (36.0-46.0) % MCV 96.0 (80.0-98.0) fL MCH 32.8 H (27.0-32.0) pg MCHC 34.2 (31.0-37.0) g/dL RDW Std Deviation 45.1 (28.0-62.0) fl RDW Coeff of [place] 13 (11.0-15.0) % Plt Count 307 (150-400) K/uL MPV 10.80 (7.40-12.00) fL Neut % (Auto) 65.1 (48.0-80.0) % Lymph % (Auto) 21.6 (16.0-40.0) % [place] % (Auto) 9.0 (0.0-15.0) % Eos % (Auto) 4.0 (0.0-7.0) % Baso % (Auto) 0.3 (0.0-1.5) % Neut # (Auto) 6.0 H (1.4-5.7) K/uL Lymph # (Auto) 2.0 (0.6-2.4) K/uL [place] # (Auto) 0.8 (0.0-0.8) K/uL Eos # (Auto) 0.4 (0.0-0.7) K/uL Baso # (Auto) 0.0 (0.0-0.1) K/uL Nucleated RBC % 0.0 /100WBC Nucleated RBCs # 0 K/uL Sodium 138 (136-146) mmol/L Potassium 4.2 (3.5-5.1) mmol/L Chloride 107 (98-110) mmol/L Carbon Dioxide 24 (21-31) mmol/L BUN 16 (6.0-23.0) mg/dL Creatinine 0.8 (0.6-1.5) mg/dL Est Cr Clr Drug Dosing 78.30 mL/min Estimated GFR (MDRD) > 60.0 ml/min Glucose 86 (60-110) mg/dL Calcium 9.9 (8.8-10.8) mg/dL Total Bilirubin 0.3 (0.1-1.5) mg/dL AST 20 (5-40) IU/L ALT 19 (8-54) IU/L Alkaline Phosphatase 60 (40-150) Troponin I < 0.10 (0.0-0.29) NG/ML Total Protein 7.9 (6.0-8.0) g/dL Albumin 4.2 (3.5-5.0) g/dL Globulin 3.7 H (2.0-3.5) g/dL Albumin/Globulin Ratio 1.1 L (1.3-2.8) Meds: Medications Discontinued Medications Generic Name Dose Route Start Last Admin Trade Name Hina PRN Reason Stop Dose Admin Acetaminophen 650 mg 08/25/17 12:12 Tylenol PO 08/25/17 12:13 NOW ONE Albuterol/Ipratropium 3 ml 08/25/17 12:12 Duoneb 3.0-0.5 Mg/3 Ml NEB 08/25/17 12:13 ONETIME ONE Albuterol/Ipratropium Confirm 08/25/17 12:13 08/25/17 12:22 Duoneb 3.0-0.5 Mg/3 Ml Administered 08/25/17 12:14 3 ml Dose Administration 3 ml .ROUTE .STK-MED ONE Sodium Chloride 1,000 mls @ 999 mls/hr 08/25/17 12:12 08/25/17 12:53 Normal Saline IV 08/25/17 13:12 999 mls/hr STAT ONE Administration Methylprednisolone Sodium Succinate 125 mg 08/25/17 12:12 08/25/17 12:53 Solu-Medrol IVPUSH 08/25/17 12:13 125 mg ONETIME ONE Administration Departure - Departure Time of Disposition: 14:15 Disposition: Home, Self-Care 01 Clinical Impression: Atelectasis - Discharge Information Referrals: Kevon Vizcarra MD [Primary Care Provider] - Forms: ED Department Discharge Additional Instructions: My general discharge The following information is given to patients seen in the emergency department who are being discharged to home. This information is to outline your options for follow-up care. We provide all patients seen in our emergency department with a follow-up referral. The need for follow-up, as well as the timing and circumstances, are variable depending upon the specifics of your emergency department visit. If you don't have a primary care physician on staff, we will provide you with a referral. We always advise you to contact your personal physician following an emergency department visit to inform them of the circumstance of the visit and for follow-up with them and/or the need for any referrals to a consulting specialist. The emergency department will also refer you to a specialist when appropriate. This referral assures that you have the opportunity for follow-up care with a specialist. All of these measure are taken in an effort to provide you with optimal care, which includes your follow-up. Under all circumstances we always encourage you to contact your private physician who remains a resource for coordinating your care. When calling for follow-up care, please make the office aware that this follow-up is from your recent emergency room visit. If for any reason you are refused follow-up, please contact the [facility] at and asked to speak to the emergency department charge nurse. [facility] [address] [place] [id number] 1. Please take the duo nebs as prescribed. Continue with her incentive spirometer. 2. With the Tylenol with codeine Elixir, be careful to not have more than 4, 000mg of tylenol/acetaminophen per day. As you are already taking [place] ( Acetaminophen/hydrocodone). 3. Follow-up with your primary care provider in the next 1-2 days. Return to the ED as needed and as discussed. - My Orders Last 24 Hours: My Active Orders 08/25/17 12:12 EKG Documentation Completion [RC] STAT RT Aerosol Therapy [RC] ASDIRECTED 08/25/17 12:30 CULTURE BLOOD [BC] Stat 08/25/17 12:40 CULTURE BLOOD [BC] Stat 08/25/17 14:04 Albuterol/Ipratropium [DuoNeb 3.0-0.5 MG/3 ML] 3 ml NEB ONETIME ONE 08/25/17 14:05 RT Aerosol Therapy [RC] ASDIRECTED - Assessment/Plan Last 24 Hours: My Active Orders 08/25/17 12:12 EKG Documentation Completion [RC] STAT RT Aerosol Therapy [RC] ASDIRECTED 08/25/17 12:30 CULTURE BLOOD [BC] Stat 08/25/17 12:40 CULTURE BLOOD [BC] Stat 08/25/17 14:04 Albuterol/Ipratropium [DuoNeb 3.0-0.5 MG/3 ML] 3 ml NEB ONETIME ONE 08/25/17 14:05 RT Aerosol Therapy [RC] ASDIRECTED
[2017-08-25 13:20] LABS: CHLORIDE,CL 107 mmol/L (98-110); SODIUM,NA 138 mmol/L (136-146)
--- NOTE | 2017-08-25 13:46 | CR ---
EXAMINATION: Two-view chest (PA and Lateral views). HISTORY: Cough. FINDINGS: The trachea is midline. The cardiomediastinal silhouette is within normal limits. No pulmonary infilt rates, effusions or pneumothorax. Osseous structures appear unremarkable. IMPRESSION: No acute cardiopulmonary process.
[2017-08-25 14:53] VITALS: BP 128/81
== END 2017-08-25 14:45 | disposition home or self-care (01) ==
LOC: MW.ED 12:07
DX: J98.11 Atelectasis (principal); Z88.8 Allergy status to other drugs, medicaments and biological substances; Z79.899 Other long term (current) drug therapy
CPT/HCPCS: 36415; 71020; 80053; 84484; 85025; 87040; 93005; 94640; 96361; 96374; 99284; J2930; J7040; 99283

== ENCOUNTER 2019-02-27 15:57 | Emergency (ER) | payer BC ==
[2019-02-27 16:12] VITALS: BP 136/80
--- NOTE | 2019-02-27 16:16 | EDM.PDOC ---
ED HPI GENERAL MEDICAL PROBLEM - General Chief Complaint: ENT Problem Stated Complaint: SENT BY DR VIZCARRA Time Seen by Provider: 02/27/19 16:15 Source of Information: Reports: Patient - History of Present Illness INITIAL COMMENTS - FREE TEXT/NARRATIVE: HISTORY AND PHYSICAL: History of present illness: [Patient with anxiety presents with feeling of throat closing she is currently on steroids she received Kenalog injection yesterday with Dr. Dye as well as amoxicillin she is breathing well in no distress able to speak able to drink water unable to swallow spit no fever nausea vomiting chills sweats no stridor] Review of systems: As per history of present illness and below otherwise all systems reviewed and negative. Past medical history: As per history of present illness and as reviewed below otherwise noncontributory. Surgical history: As per history of present illness and as reviewed below otherwise noncontributory. Social history: No reported history of drug or alcohol abuse. Family history: As per history of present illness and as reviewed below otherwise noncontributory. Physical exam: HEENT: Atraumatic, normocephalic, pupils reactive, negative for conjunctival pallor or scleral icterus, mucous membranes moist, throat clear, neck supple, nontender, trachea midline. Lungs: Clear to auscultation, breath sounds equal bilaterally, chest nontender. Heart: S1S2, regular, negative for clicks, rubs, or JVD. Abdomen: Soft, nondistended, nontender. Negative for masses or hepatosplenomegaly. Negative for costovertebral tenderness. Pelvis: Stable nontender. Genitourinary: Deferred. Rectal: Deferred. Extremities: Atraumatic, negative for cords or calf pain. Neurovascular unremarkable. Neuro: Awake, alert, oriented. Cranial nerves II through XII unremarkable. Cerebellum unremarkable. Motor and sensory unremarkable throughout. Exam nonfocal. Diagnostics: [CBC CMP Soft tissue neck with contrast ] Therapeutics: [Normal saline Proton X Valium Valium 5 mg #10 no refill] Impression: [Rule out abscess ] Anxiety Anxiety about health Medical screening exam Definitive disposition and diagnosis as appropriate pending reevaluation and review of above. - Related Data Allergies Allergy/AdvReac Type Severity Reaction Status Date / Time promethazine [From Phenergan] Allergy Other Verified 08/25/17 12:15 Home Meds: Home Meds Albuterol [Proventil HFA] 2 puff INH ASDIRECTED PRN 03/22/16 [History] FLUoxetine [PROzac] 20 mg PO DAILY 03/23/16 [History] Levothyroxine 25 mcg PO ACBREAKFAST 03/23/16 [History] Methyltrexate 15 mg PO WEEKLY PRN 03/23/16 [History] ClonazePAM [KlonoPIN] 2 mg PO BEDTIME 08/25/17 [History] QUEtiapine Fumarate [Seroquel] 50 mg PO DAILY 08/25/17 [History] Past Medical History HEENT History: Reports: None Other HEENT History: "throat issues" per PT Cardiovascular History: Reports: None Respiratory History: Reports: Asthma [employer]ING MA[employer] History: Reports: Musculoskeletal History: Reports: None, Fibromyalgia Neurological History: Reports: None Psychiatric History: Reports: Anxiety, Depression, PTSD Endocrine/Metabolic History: Reports: Hypothyroidism Hematologic History: Reports: None Immunologic History: Reports: SLE Dermatologic History: Reports: None - Infectious Disease History Infectious Disease History: Reports: None - Past Surgical History HEENT Surgical History: Reports: None GI Surgical History: Reports: Appendectomy, Cholecystectomy, Other (See Below) Other GI Surgeries/Procedures: tummy tack Female Surgical History: Reports: Hysterectomy Musculoskeletal Surgical History: Reports: None Oncologic Surgical History: Reports: Lumpectomy Social & Family History - Family History Family Medical History: Noncontributory - Tobacco Use Smoking Status *Q: Never Smoker - Caffeine Use Caffeine Use: Reports: None - Recreational Drug Use Recreational Drug Use: No ED ROS GENERAL - Review of Systems Review Of Systems: See Below ED EXAM, GENERAL - Physical Exam Exam: See Below Course - Vital Signs Last Recorded V/S: Last Vital Signs Temp 96.8 F 02/27/19 16:09 Pulse 91 02/27/19 16:09 Resp 22 H 02/27/19 16:09 BP 136/80 02/27/19 16:09 Pulse Ox 100 02/27/19 16:09 - Orders/Labs/Meds Labs: Laboratory Tests 02/27/19 02/27/19 Range/Units 16:25 16:25 WBC 8.19 (4.0-11.0) K/uL RBC 3.92 L (4.30-5.90) M/uL Hgb 12.7 (12.0-16.0) g/dL Hct 37.6 (36.0-46.0) % MCV 95.9 (80.0-98.0) fL MCH 32.4 H (27.0-32.0) pg MCHC 33.8 (31.0-37.0) g/dL RDW Std Deviation 44.8 (28.0-62.0) fl RDW Coeff of [place] 13 (11.0-15.0) % Plt Count 233 (150-400) K/uL MPV 10.20 (7.40-12.00) fL Neut % (Auto) 64.9 (48.0-80.0) % Lymph % (Auto) 21.6 (16.0-40.0) % [place] % (Auto) 10.6 (0.0-15.0) % Eos % (Auto) 2.7 (0.0-7.0) % Baso % (Auto) 0.2 (0.0-1.5) % Neut # (Auto) 5.3 (1.4-5.7) K/uL Lymph # (Auto) 1.8 (0.6-2.4) K/uL [place] # (Auto) 0.9 H (0.0-0.8) K/uL Eos # (Auto) 0.2 (0.0-0.7) K/uL Baso # (Auto) 0.0 (0.0-0.1) K/uL Nucleated RBC % 0.0 /100WBC Nucleated RBCs # 0 K/uL Sodium 141 (136-145) mmol/L Potassium 4.0 (3.5-5.1) mmol/L Chloride 106 (98-107) mmol/L Carbon Dioxide 23.8 (21.0-32.0) mmol/L BUN 9 (7.0-18.0) mg/dL Creatinine 1.2 H (0.6-1.0) mg/dL Est Cr Clr Drug Dosing 51.12 mL/min Estimated GFR (MDRD) 48.6 ml/min Glucose 95 (74-106) mg/dL Calcium 9.3 (8.5-10.1) mg/dL Total Bilirubin 0.5 (0.2-1.0) mg/dL AST 24 (15-37) IU/L ALT 35 (14-63) IU/L Alkaline Phosphatase 55 (46-116) U/L Total Protein 7.6 (6.4-8.2) g/dL Albumin 4.3 (3.4-5.0) g/dL Globulin 3.3 (2.6-4.0) g/dL Albumin/Globulin Ratio 1.3 (0.9-1.6) Meds: Medications Discontinued Medications Generic Name Dose Route Start Last Admin Trade Name Hina PRN Reason Stop Dose Admin Diazepam 5 mg 02/27/19 16:28 02/27/19 17:37 Valium IVPUSH 02/27/19 16:29 5 mg ONETIME ONE Administration Diazepam Confirm 02/27/19 17:12 Valium Administered 02/27/19 17:13 Dose 5 mg .ROUTE .STK-MED ONE Sodium Chloride 1,000 mls @ 999 mls/hr 02/27/19 16:27 02/27/19 17:13 Normal Saline IV 02/27/19 17:27 999 mls/hr STAT ONE Administration Sterile Water Confirm 02/27/19 17:13 Sterile Water For Injection Administered 02/27/19 17:14 Dose 20 mls @ as directed .ROUTE .STK-MED ONE Iopamidol 70 ml 02/27/19 17:54 02/27/19 17:54 Isovue Multipack-370 (76%) IVPUSH 02/27/19 17:55 70 ml ONETIME STA Administration Pantoprazole Sodium 80 mg 02/27/19 16:27 02/27/19 17:24 Protonix Iv IVPUSH 02/27/19 16:28 80 mg .BOLUS ONE Administration Departure - Departure Time of Disposition: 18:36 Disposition: Home, Self-Care 01 Condition: Good Clinical Impression: Anxiety - Discharge Information Referrals: Kevon Vizcarra MD [Primary Care Provider] - Forms: ED Department Discharge Additional Instructions: Do not take Klonopin with Valium Return if symptoms persist or worsen Follow-up with Dr. Vizcarra for medication change her dosing adjustment The following information is given to patients seen in the emergency department who are being discharged to home. This information is to outline your options for follow-up care. We provide all patients seen in our emergency department with a follow-up referral. The need for follow-up, as well as the timing and circumstances, are variable depending upon the specifics of your emergency department visit. If you don't have a primary care physician on staff, we will provide you with a referral. We always advise you to contact your personal physician following an emergency department visit to inform them of the circumstance of the visit and for follow-up with them and/or the need for any referrals to a consulting specialist. The emergency department will also refer you to a specialist when appropriate. This referral assures that you have the opportunity for follow-up care with a specialist. All of these measure are taken in an effort to provide you with optimal care, which includes your follow-up. Under all circumstances we always encourage you to contact your private physician who remains a resource for coordinating your care. When calling for follow-up care, please make the office aware that this follow-up is from your recent emergency room visit. If for any reason you are refused follow-up, please contact the [facility] emergency department at and asked to speak to the emergency department charge nurse.
[2019-02-27] MEDS ORDERED: Pantoprazole 40 MG Vial IVPUSH ONE (16:27)
[2019-02-27] MEDS ORDERED: Sodium Chloride 0.9% 1,000 ML IV ONE (16:27)
[2019-02-27] MEDS ORDERED: diazePAM 5 MG/ML MDV ONE (17:12)
[2019-02-27] MEDS ORDERED: Water For Injection, Sterile 20 ML ONE (17:13)
[2019-02-27] MEDS ORDERED: Iopamidol 755 MG/ML 500 ML Multipack Bottle IVPUSH STA (17:54)
--- NOTE | 2019-02-27 18:27 | CT ---
INDICATION: Pain and difficulty swallowing. TECHNIQUE: CT images were obtained through the neck following administration of intravenous contrast. COMPARISON: None. FINDINGS: The nasopharynx, oropharynx, hypopharynx, and larynx are widely patent and without enhancing lesions. The parapharyngeal fat is preserved. No retropharyngeal edema. Punctate right palatine tonsillith. No enhancing lesions in the oral cavity or floor of mouth. The parotid and submandibular glands are relatively symmetric in size and without enhancing lesions or calcifications. Mildly prominent level IIa lymph nodes measure 12 mm bilaterally and are potentially reactive. No pathologically enlarged lymph nodes are identified. The thyroid gland is normal in size and demonstrates homogeneous enhancement. Limited images through the brain are without intracranial mass effect. The visualized paranasal sinuses and mastoid air cells are clear. Mild multilevel cervical spondylosis. The visualized lungs are notable for motion artifact and mild dependent atelectasis. IMPRESSION: 1. No fluid collection, inflammatory stranding, or pathologically enlarged lymph nodes in the neck. 2. The airway is widely patent. Please note that all CT scans at this facility use dose modulation, iterative reconstruction, and/or weight-based dosing when appropriate to reduce radiation dose to as low as reasonably achievable. Dictated by Ham Allen MD @ Feb 27 2019 6:18PM Signed by Dr. Ham Allen @ Feb 27 2019 6:26PM
== END 2019-02-27 19:09 | disposition home or self-care (01) ==
LOC: MW.ED 15:57
DX: F41.9 Anxiety disorder, unspecified (principal); F32.9 Major depressive disorder, single episode, unspecified; Z88.8 Allergy status to other drugs, medicaments and biological substances; Z79.899 Other long term (current) drug therapy
CPT/HCPCS: 36415; 70491; 80053; 85025; 96361; 96374; 96375; 99284; C9113; J3360; J7040; Q9967

== ENCOUNTER 2019-10-31 14:12 | Emergency (ER) | payer BC ==
[2019-10-31] MEDS ORDERED: LORazepam 2 MG/ML SDV IVPUSH ONE (14:54)
[2019-10-31] MEDS ORDERED: Sodium Chloride 0.9% 1,000 ML IV ONE (14:54)
[2019-10-31] MEDS ORDERED: Pseudoephedrine 30 MG Tab PO ONE (14:54)
[2019-10-31 15:07] LABS: BLOOD UREA NITROGEN,BUN 13 mg/dL (7.0-18.0); CARBON DIOXIDE,CO2 25.1 mmol/L (21.0-32.0); CHLORIDE,CL 105 mmol/L (98-107); GLUCOSE RANDOM 109 mg/dL (74-106); POTASSIUM,K 3.4 mmol/L (3.5-5.1); SODIUM,NA 140 mmol/L (136-145)
--- NOTE | 2019-10-31 16:46 | CT ---
INDICATION: Headache and vertigo. Comparison none. TECHNIQUE: Noncontrast CT of the head. FINDINGS: Normal brain parenchymal morphology. No acute intracranial hemorrhage, acute infarct, mass effect, or fracture. No midline shift. No abnormal ventricular dilatation. Normal calvarium and skull base. Visualized paranasal sinuses and mastoid air cells are clear. Normal orbits bilaterally. IMPRESSION: 1. No acute intracranial abnormality. 2. Normal brain parenchymal morphology. Please note that all CT scans at this facility use dose modulation, iterative reconstruction, and/or weight-based dosing when appropriate to reduce radiation dose to as low as reasonably achievable. Dictated by Laz Sanchez MD @ Oct 31 2019 4:45PM Signed by Dr. Laz Sanchez @ Oct 31 2019 4:45PM
--- NOTE | 2019-10-31 17:08 | EDM.PDOC ---
ED [facility] GENERAL MEDICAL PROBLEM - General Chief Complaint: Cardiovascular Problem Stated Complaint: TINGLING IN HANDSHEART PALPITATIONS Time Seen by Provider: 10/31/19 14:15 - History of Present Illness INITIAL COMMENTS - FREE TEXT/NARRATIVE: HPI 43-year-old female presents for evaluation poorly characterize ongoing vertiginous type symptoms, sinus congestion, and ear fullness. Patient reports that she has had issues with sinus congestion since mid/late summer, has had negative evaluation by ENT, and continues to frequently use decongestant medications. Patient also reports long-standing vertiginous type symptoms which have worsened over last several days in the setting of a mild sore throat, cough , and bilateral cheerfulness. Patient is without chest pain, shortness breath, or further symptoms. Patient reports that she fell last fall, struck her head, and is concerned that she may have intracranial process. M/S/F/SocHx notable for: please see HPI; remainder reviewed with patient and in chart. ROS: Negative constitutional, eye, cardiovascular, pulmonary, GI, , MSK, skin , neurologic, psychiatric, endocrine unless noted in the HPI. Exam HR 84, RR 16, BP 110/70, T 36.1C, SaO2 98% on room air. Gen: Pleasant, non-toxic appearing, resting comfortably. HEENT: NC, AT, PEERL, EOMI. Resp: Clear to auscultation bilaterally, normal work of breathing, no accessory muscle usage. Card: Regular rate and rhythm with no murmurs, rubs, or gallops, extremities warm and well perfused. GI: Non-tender to palpation throughout all quadrants, no focal tenderness at McBurney's point, negative Gomes's sign, non-distended, no rebound or guarding. : No suprapubic tenderness to palpation. MSK: No visible deformities, strength and tone without visually appreciable deficit. Skin: Normal color with no visible lesions. Neuro: alert and oriented 3, no facial asymmetry, no gaze preference, no slurring of speech. CN II-III: pupils equal and reactive (4->2mm bilaterally); III, IV, : EOMI, V1-V3: sensation to touch bilaterally intact; VII: no facial asymmetry (frown / smile); VIII: no nystagmus; X: phonation intact, uvula midline; XI: trapezius 5/5 bilaterally, XII: tongue midline. Cerebellar: no pronator drift, [id number] testing without dysmetria bilaterally, heel to andrews without dysmetria bilaterally. Gait: normal narrow-base nonantalgic gait, so ataxia. Psych: Mood and affect appropriate. Labs / Imaging: WBC 6.16, HB 13.2, sodium 140, potassium 3.4, magnesium 1.7. EKG: SR 86 bpm, no KS segment depressions, KS interval hundred 12 ms, QRS hundred milliseconds, QTc 4 and 26, no ST segment elevations or depressions, no discordant T wave inversions. CT Head: no acute intracranial abnormality. Normal brain parenchymal morphology. Influenza A & B pending. MDM Previous chart, nursing note, labs, imaging, and vitals reviewed. A: 43-year-old female presents for evaluation poorly characterize ongoing vertiginous type symptoms, sinus congestion, and ear fullness. Evaluation: overall suspect the patients symptoms are secondary to chronic vertiginous and sinus congestion with superimposed viral URI. CT head unremarkable, ECG without evidence of arrhythmia, CBC, BMP within clinically acceptable limits, mild hypomagnesemia (felt to be noncontributory) noted. Influenza A and B negative. Patient given 1 L NS, Toradol, and 1 mg Ativan with improvement. Discharge with PCP follow-up recommended. Impression: vertigo. - Related Data Allergies Allergy/AdvReac Type Severity Reaction Status Date / Time promethazine [From Phenergan] Allergy Other Verified 08/25/17 12:15 Home Meds: Home Meds Albuterol [Proventil HFA] 2 puff INH ASDIRECTED PRN 03/22/16 [History] FLUoxetine [PROzac] 20 mg PO DAILY 03/23/16 [History] Levothyroxine 25 mcg PO ACBREAKFAST 03/23/16 [History] Methyltrexate 15 mg PO WEEKLY PRN 03/23/16 [History] ClonazePAM [KlonoPIN] 2 mg PO BEDTIME 08/25/17 [History] QUEtiapine Fumarate [Seroquel] 50 mg PO DAILY 08/25/17 [History] Past Medical History HEENT History: Reports: None Other HEENT History: "throat issues" per PT Cardiovascular History: Reports: None Respiratory History: Reports: Asthma [employer]DER History: Reports: Musculoskeletal History: Reports: None, Fibromyalgia Neurological History: Reports: None Psychiatric History: Reports: Anxiety, Depression, PTSD Endocrine/Metabolic History: Reports: Hypothyroidism Hematologic History: Reports: None Immunologic History: Reports: SLE Dermatologic History: Reports: None - Infectious Disease History Infectious Disease History: Reports: None - Past Surgical History HEENT Surgical History: Reports: None GI Surgical History: Reports: Appendectomy, Cholecystectomy, Other (See Below) Other GI Surgeries/Procedures: tummy tack Female Surgical History: Reports: Hysterectomy Musculoskeletal Surgical History: Reports: None Oncologic Surgical History: Reports: Lumpectomy Social & Family History - Family History Family Medical History: Noncontributory - Caffeine Use Caffeine Use: Reports: None ED ROS GENERAL - Review of Systems Review Of Systems: See Below ED EXAM, GENERAL - Physical Exam Exam: See Below Course - Vital Signs Last Recorded V/S: Last Vital Signs Temp 36.1 C 10/31/19 16:24 Pulse 84 10/31/19 16:24 Resp 16 10/31/19 16:24 BP 110/78 10/31/19 16:24 Pulse Ox 98 10/31/19 16:24 - Orders/Labs/Meds Orders: Active Orders 24 hr Category Date Time Status EKG Documentation Completion [RC] STAT Care 10/31/19 16:28 Active Labs: Laboratory Tests 10/31/19 10/31/19 Range/Units 14:21 14:21 WBC 6.16 (4.0-11.0) K/uL RBC 3.99 L (4.30-5.90) M/uL Hgb 13.2 (12.0-16.0) g/dL Hct 38.6 (36.0-46.0) % MCV 96.7 (80.0-98.0) fL MCH 33.1 H (27.0-32.0) pg MCHC 34.2 (31.0-37.0) g/dL RDW Std Deviation 46.8 (28.0-62.0) fl RDW Coeff of Quinton 13 (11.0-15.0) % Plt Count 236 (150-400) K/uL MPV 10.20 (7.40-12.00) fL Neut % (Auto) 55.0 (48.0-80.0) % Lymph % (Auto) 30.5 (16.0-40.0) % [place] % (Auto) 11.5 (0.0-15.0) % Eos % (Auto) 2.8 (0.0-7.0) % Baso % (Auto) 0.2 (0.0-1.5) % Neut # (Auto) 3.4 (1.4-5.7) K/uL Lymph # (Auto) 1.9 (0.6-2.4) K/uL [place] # (Auto) 0.7 (0.0-0.8) K/uL Eos # (Auto) 0.2 (0.0-0.7) K/uL Baso # (Auto) 0.0 (0.0-0.1) K/uL Nucleated RBC % 0.0 /100WBC Nucleated RBCs # 0 K/uL Sodium 140 (136-145) mmol/L Potassium 3.4 L (3.5-5.1) mmol/L Chloride 105 (98-107) mmol/L Carbon Dioxide 25.1 (21.0-32.0) mmol/L BUN 13 (7.0-18.0) mg/dL Creatinine 0.8 (0.6-1.0) mg/dL Est Cr Clr Drug Dosing TNP Estimated GFR (MDRD) > 60.0 ml/min Glucose 109 H (74-106) mg/dL Calcium 8.8 (8.5-10.1) mg/dL Magnesium 1.7 L (1.8-2.4) mg/dL Meds: Medications Discontinued Medications Generic Name Dose Route Start Last Admin Trade Name Freq PRN Reason Stop Dose Admin Sodium Chloride 1,000 mls @ 1,000 mls/hr 10/31/19 14:54 10/31/19 15:15 Normal Saline IV 10/31/19 15:53 1,000 mls/hr .Bolus ONE Administration Lorazepam 1 mg 10/31/19 14:54 10/31/19 15:16 Ativan IVPUSH 10/31/19 14:55 1 mg ONETIME ONE Administration Pseudoephedrine HCl 30 mg 10/31/19 14:54 10/31/19 15:17 Sudogest PO 10/31/19 14:55 30 mg ONETIME ONE Administration Departure - Departure Time of Disposition: 17:07 Disposition: Home, Self-Care 01 Clinical Impression: Vertigo Instructions: Vertigo, [id number] Referrals: Kevon Vizcarra MD [Primary Care Provider] - Additional Instructions: You were in seen in the [facility] Emergency Department for evaluation of dizziness, the time of your evaluation no clear cause of your symptoms were found, please follow-up your primary care physician and ENT physician within 24-48 hours repeat evaluation further care as needed. Please read and follow all of the instructions below. When calling for follow-up care, please make the office aware that this follow- up is from your recent emergency room visit. If for any reason you are refused follow-up, please contact the [facility] Emergency Department at and asked to speak to the emergency department charge nurse. Your care today was limited to identifying and treating emergent medical problems only. Many people have subtle differences in their test results that require follow up with their outpatient physician(s) to correctly determine if this represents a normal variation or concerning abnormality with respect to your specific health. The care given to you today was limited to identifying and treating emergent medical problems - you need to request a copy of all of your medical records from today's visit and follow up with your outpatient physician(s) to review both today's visit and your overall health. If you have any new symptoms or if you are at all concerned about your health please return immediately to the emergency department. Prescriptions: If you are uninsured or have financial difficulties with filling your prescription(s), you may consider using a free pharmacy discount service such as [employer] (Equ[employer]) or [employer] ([employer]). These services allow you to search for a medication on your phone (or computer) and obtain a coupon that usually has a significant discount from the list galvez at a pharmacy. Your physician as well as [facility] does not have a financial relationship with either of these services. You may also wish to speak with your physician to determine if lower cost prescriptions are possible. Obtaining primary care: 1. [facility] provides pediatrics (children), family medicine (children, adults, and some obstetrical care), and internal medicine (adults). Further specialty care is also available. Same day appointments are available. They may be contacted at [phone] and are open Friday through Friday 8 AM to 5 PM. The [facility] clinics are located at [facility], [address] [place], [place] [address]. 2. [facility] offers family medicine, internal medicine, women health, and further specialty care. [facility] may be contacted at [phone]. [facility] is located at [address] [facility] [address]. 3. If you have health insurance, please also contact your insurer for a list of accepting providers under your policy, you may contact these providers for further health care. Occupational health: Work related injuries may consider following up with [facility], . Occupational health services are located at [address] [place] [phone] and are open Friday through Friday from 7: 30 am to 5:00 pm. Obstetrical and Gynecological Care: [facility], , Friday through Friday 8 AM to 5 PM. [address] [place] [address]. Eyecare: If you have an eye injury you should follow up with your towboat pilot or with [facility], at [phone] or [phone] , they are located at [address] [place] [address]. Sepsis Event Note - Focused Exam Vital Signs: Vital Signs Temp Pulse Resp BP Pulse Ox 10/31/19 16:24 36.1 C 84 16 110/78 98 Date Exam was Performed: 10/31/19 Time Exam was Performed: 17:07 - My Orders Last 24 Hours: My Active Orders 10/31/19 16:28 EKG Documentation Completion [RC] STAT - Assessment/Plan Last 24 Hours: My Active Orders 10/31/19 16:28 EKG Documentation Completion [RC] STAT
[2019-10-31 17:26] VITALS: BP 113/80; PULSE 100
== END 2019-10-31 17:27 | disposition home or self-care (01) ==
LOC: MW.ED 14:12
DX: R42 Dizziness and giddiness (principal); Z79.890 Hormone replacement therapy; E03.9 Hypothyroidism, unspecified; F32.9 Major depressive disorder, single episode, unspecified; J45.909 Unspecified asthma, uncomplicated; Z79.899 Other long term (current) drug therapy
CPT/HCPCS: 70450; 80048; 83735; 85025; 87804; 93005; 96361; 96374; 99285; A9270; J2060; J7030; 99283

== ENCOUNTER 2022-02-20 13:27 | Emergency (ER) | payer BC ==
[2022-02-20] MEDS ORDERED: Sodium Chloride 0.9% 2.5 ML Syringe FLUSH PRN (14:10)
[2022-02-20] MEDS ORDERED: Sodium Chloride 0.9% 10 ML Syringe FLUSH PRN (14:10)
[2022-02-20 15:08] LABS: BLOOD UREA NITROGEN,BUN 13 mg/dL (7.0-18.0); CARBON DIOXIDE,CO2 26.2 mmol/L (21.0-32.0); CHLORIDE,CL 104 mmol/L (98-107); GLUCOSE RANDOM 133 mg/dL (74-106); POTASSIUM,K 3.9 mmol/L (3.5-5.1); SODIUM,NA 140 mmol/L (136-145)
[2022-02-20] MEDS ORDERED: Dexamethasone 10 MG/ML SDV IVPUSH ONE (15:40)
[2022-02-20 21:35] VITALS: BP 128/75; PULSE 71
== END 2022-02-20 17:10 | disposition home or self-care (01) ==
LOC: MW.ED 13:27
DX: R07.89 Other chest pain (principal); M25.512 Pain in left shoulder; M54.2 Cervicalgia; E03.9 Hypothyroidism, unspecified; Z88.8 Allergy status to other drugs, medicaments and biological substances; Z79.899 Other long term (current) drug therapy
CPT/HCPCS: 36415; 80048; 84484; 85025; 93005; 96374; 99285; J1100; J3490

== ENCOUNTER 2024-01-20 16:24 | Emergency (ER) | payer BC ==
[2024-01-20] MEDS: Albuterol/Ipratropium 3.0-0.5 MG/3 ML Neb Soln NEB ONE (16:49)
[2024-01-20] MEDS: Lidocaine 2% 5 ML SDV ONE (16:49)
[2024-01-20] MEDS: Sodium Chloride 0.9% 1,000 ML IV ONE (17:10)
[2024-01-20] MEDS: Lidocaine 2% 5 ML SDV INJECT ONE ×2 (17:13→18:58)
[2024-01-20 17:21] LABS: HEMATOCRIT 35.3 % (37.0-47.0); HEMOGLOBIN 12.3 g/dL (12.0-16.0); IMMATURE GRAN ABSOLUTE AUTO 0.01 K/uL (0.00-0.05); IMMATURE GRAN PERCENT AUTO 0.3 % (0.0-0.4); LYMPHOCYTES ABSOLUTE AUTO 0.44 K/uL (1.00-4.80); LYMPHOCYTES PERCENT AUTO 11.2 % (24.0-44.0); MEAN CORPUSCULAR HEMOGLOBIN 32.4 pg (28.0-32.0); MEAN CORPUSCULAR HGB CONC 34.8 g/dL (32.0-36.0); MEAN CORPUSCULAR VOLUME 92.9 fL (83.0-99.0); MEAN PLATELET VOLUME 9.8 fL (9.4-12.3); MONOCYTES ABSOLUTE AUTO 0.47 K/uL (0.00-0.80); NEUTROPHILS ABSOLUTE AUTO 3.01 K/uL (1.80-7.70); NEUTROPHILS PERCENT AUTO 76.5 % (41.0-71.0); PLATELET COUNT,PLT 199 K/uL (150-400); WHITE BLOOD CELL COUNT,WBC 3.93 K/uL (3.9-11.3)
[2024-01-20 17:24] LABS: BASE EXCESS VENOUS -2.7 (-2.0-3.0); BICARBONATE,VENOUS 23 mEq/L (23-28); PCO2 VENOUS 44 mmHG (41-51); PH,VENOUS 7.33 (7.31-7.41); PO2 VENOUS < 30 mmHG
[2024-01-20 17:50] LABS: A/G RATIO 0.9 (0.9-1.6); ALBUMIN 3.5 g/dL (3.4-5.0); BILIRUBIN TOTAL 0.1 mg/dL (0.2-1.0); C-REACTIVE PROTEIN 1.02 mg/dL (<0.3); CALCIUM 8.9 mg/dL (8.5-10.1); CARBON DIOXIDE,CO2 21.8 mmol/L (21.0-32.0); CREATININE 0.8 mg/dL (0.6-1.0); EST CRCL DRUG DOSING (CG) 72.29 mL/min; MAGNESIUM 1.6 mg/dL (1.8-2.4); POTASSIUM,K 3.5 mmol/L (3.5-5.1); PROTEIN TOTAL,TP 7.2 g/dL (6.4-8.2)
[2024-01-20 19:23] VITALS: BP 129/81; PULSE 109
== END 2024-01-20 19:00 | disposition home or self-care (01) ==
LOC: MW.ED 16:24
DX: J11.1 Influenza due to unidentified influenza virus with other respiratory manifestations (principal); E03.9 Hypothyroidism, unspecified; Z88.8 Allergy status to other drugs, medicaments and biological substances; Z88.6 Allergy status to analgesic agent; Z90.49 Acquired absence of other specified parts of digestive tract; Z90.710 Acquired absence of both cervix and uterus; Z75.8 Other problems related to medical facilities and other health care; Z20.822 Contact with and (suspected) exposure to COVID-19
CPT/HCPCS: 0241U; 36415; 71045; 80053; 82803; 83735; 85025; 85379; 86140; 93005; 94640; 96360; 99285; J7030; 93010; 99283; J3490; J7620-GY